=== PATIENT | male | born 2000 | race Caucasian/White ===

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

== ENCOUNTER → 2020-11-26 | Outpatient (CLI) | payer BC | LOC: CARD 08:43 | PROVIDERS: ATTEND Internal Medicine Cardiovascular Disease | DX: R94.31 Abnormal electrocardiogram [ECG] [EKG] (principal) | CPT/HCPCS: 93306 ==